=== PATIENT | female | born 2000 | race American Indian/Alaskan Native ===

== ENCOUNTER 2020-09-20 17:34 | Emergency (ER) | payer SELFPAY ==
[2020-09-20 17:55] VITALS: BP 115/61
--- NOTE | 2020-09-20 18:43 | Event Note ---
ED Screening Note Date of service: 09/20/20 Time: 18:43 ED Screening Note: 20-year-old -Guine[place] female presents to the emergency room stating that she just feels weak for 1 week. 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 Patient reports she is eating well, no fever no chills, vomited 1 time yesterday one episode of diarrhea yesterday. She took a laxative earlier today. She reports her menstrual period was 09/17/2019. She states that she has some left lower quadrant discomfort. Past medical history of nothing currently takes no medications. Has no known drug allergies. This initial assessment/diagnostic orders/clinical plan/treatment(s) is/are subject to change based on patients health status, clinical progression and re- assessment by fellow clinical providers in the ED. Further treatment and workup at subsequent clinical providers discretion. Patient/guardian urged not to elope from the ED as their condition may be serious if not clinically assessed and managed. Initial orders include:
[2020-09-20 19:00] LABS: Bacteria,Urine 4+ /HPF (Negative); Bilirubin,Urine NEG (Negative); Blood,Urine NEG (Negative); Color,Urine Yellow (Yellow); Hyaline Casts,Urine 3 /LPF; Mucus,Urine 3+ /HPF; Protein,Urine <15 mg/dL mg/dL (Negative)
[2020-09-20 19:02] LABS: HCG Qualitative,Urine Negative (Negative)
--- NOTE | 2020-09-20 19:14 | Emergency Department Report ---
ED Female HPI - General Chief complaint: Pain General Stated complaint: FEVER/BODY ACHE Time Seen by Provider: 09/20/20 18:02 Source: patient Mode of arrival: Ambulatory Limitations: No Limitations - History of Present Illness Initial comments: 20-year-old -Ira[place] female presents to the emergency room stating that she just feels weak for 1 week. 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 Patient reports she is eating well, no fever no chills, vomited 1 time yesterday one episode of diarrhea yesterday. She took a laxative earlier today. She reports her menstrual period was 09/17/2019. She states that she has some left lower quadrant discomfort. Past medical history of nothing currently takes no medications. Has no known drug allergies. Onset/Timin -: week(s) Radiation: LLQ Severity: mild Consistency: intermittent Improves with: none Worsens with: none Are you Now?: No Last Menstrual Period: 09/16/20 EDC: 06/23/21 - Related Data Previous Rx's Medication Instructions Recorded Last Taken Type Nitrofurantoin [place]/M-Cryst 100 mg PO Q12HR 10 Days #20 capsule 09/20/20 Unknown Rx [Macrobid CAP] Allergies Allergy/AdvReac Type Severity Reaction Status Date / Time No Known Allergies Allergy Unverified 09/20/20 17:54 ED Review of Systems ROS: Stated complaint: FEVER/BODY ACHE Other details as noted in HPI Comment: All other systems reviewed and negative ED Past Medical Hx - Past Medical History Previous Medical History?: No - Medications Home Medications: Home Medications Medication Instructions Recorded Confirmed Last Taken Type Nitrofurantoin [place]/M-Cryst 100 mg PO Q12HR 10 Days #20 capsule 09/20/20 Unknown Rx [Macrobid CAP] ED Physical Exam - General Limitations: No Limitations ED Course Vital Signs 09/20/20 09/20/20 17:51 17:55 Temperature 98.2 F Pulse Rate 61 Respiratory 20 Rate Blood Pressure 115/61 O2 Sat by Pulse 99 Oximetry ED Medical Decision Making - Medical Decision Making 20-year-old -I[place] female presents to the emergency room stating that she just feels weak for 1 week. 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 Patient reports she is eating well, no fever no chills, vomited 1 time yesterday one episode of diarrhea yesterday. She took a laxative earlier today. She rep orts her menstrual period was 09/17/2019. She states that she has some left lower quadrant discomfort. Past medical history of nothing currently takes no medications. Has no known drug allergies. Urinalysis is positive for urinary tract infection. Will place patient on Macrobid she can take [id number] ibuprofen or Tylenol and to follow-up with her primary care provider. Critical care attestation.: If time is entered above; I have spent that time in minutes in the direct care of this critically ill patient, excluding procedure time. ED Disposition Clinical Impression: UTI (urinary tract infection) Disposition: TO HOME OR SELFCARE Is pt being admited?: No Does the pt Need Aspirin: No Condition: Stable Instructions: Urinary Tract Infection, Adult, [id number] Additional Instructions: Urine shows you have a urinary tract infection. I would like for you to complete your antibiotics as prescribed. Tylenol or ibuprofen as needed for pain. Increase your fluids advance your diet as tolerated follow-up with your primary care provider. Prescriptions: Nitrofurantoin [place]/M-Cryst [Macrobid CAP] 100 mg PO Q12HR 10 Days #20 capsule Referrals: PRIMARY CARE [Primary Care Provider] - 3-5 Days [facility] [Provider Group] - 3-5 Days Forms: Work/School Release Form(ED)
== END 2020-09-20 19:15 | disposition home or self-care (01) ==
LOC: ED 17:34
DX: N39.0 Urinary tract infection, site not specified (principal); Z79.899 Other long term (current) drug therapy
CPT/HCPCS: 81001; 81025; 87086

== ENCOUNTER 2020-10-01 00:53 | Emergency (ER) | payer SELFPAY ==
[2020-10-01 01:47] LABS: Bacteria,Urine 4+ /HPF (Negative); Bilirubin,Urine NEG (Negative); Blood,Urine NEG (Negative); Color,Urine Straw (Yellow); Protein,Urine <15 mg/dL mg/dL (Negative); Urobilinogen,Urine < 2.0 mg/dL (<2.0)
[2020-10-01 01:48] LABS: HCG Qualitative,Urine Negative (Negative)
[2020-10-01] MEDS ORDERED: cephALEXin 500 MG CAP PO ONE (02:06)
[2020-10-01] MEDS ORDERED: metroNIDAZOLE 500 MG TAB PO ONE (02:06)
[2020-10-01] MEDS ORDERED: ONDANSETRON 4 MG ODT TAB PO ONE (02:06)
--- NOTE | 2020-10-01 02:06 | Emergency Department Report ---
ED Female HPI - General Stated complaint: STD CHECK - History of Present Illness Initial comments: Patient is a nulliparous 20-year-old -Finnish female with no past medical history presents to the ED with complaint of acute onset persistent urinary frequency and urgency, vaginal discharge for the last 1 week, worse in the last 2 days. Patient states that she was recently diagnosed with acute urinary tract infection but she has not obtained the medication that was prescribed for her UTI. Patient also states that her sexual partner, a female, was diagnosed with trichomonas recently and was treated for the same but she would also like to be tested for the same and treated. Patient denies vaginal bleeding, dyspareunia, sore throat, abdominal pain, nausea, vomiting, fever, chills, cough, diarrhea, low back pain or chest pain or shortness of breath or vaginal bleeding. MD Complaint: vaginal discharge, dysuria -: Sudden, days(s) (2) Location: other (vaginal) Radiation: non-radiating Severity: moderate Severity scale (0 -10): 6 Quality: dull, burning Consistency: constant Improves with: none Worsens with: none Are you Now?: No Last Menstrual Period: 08/17/20 EDC: 05/24/21 Associated Symptoms: denies other symptoms, vaginal discharge, dysuria. denies: abdominal pain, nausea/vomiting, fever/chills, headaches, loss of appetite, rash, seizure, shortness of breath, syncope, weakness, other - Related Data Sexually active: No : 0 Para: 0 A: 0 Previous Rx's Medication Instructions Recorded Last Taken Type Fluconazole (Nf) [Diflucan TAB] 150 mg PO ONCE #1 tablet 10/01/20 Unknown Rx Ondansetron [Zofran Odt] 4 mg PO Q6HR PRN #15 tab.rapdis 10/01/20 Unknown Rx Sulfamethoxazole/Trimethoprim 1 each PO Q12H #20 tablet 10/01/20 Unknown Rx [Bactrim DS TAB] metroNIDAZOLE [Flagyl] 500 mg PO Q12HR #14 tab 10/01/20 Unknown Rx Allergies Allergy/AdvReac Type Severity Reaction Status Date / Time No Known Allergies Allergy Unverified 09/20/20 17:54 ED Review of Systems ROS: Stated complaint: STD CHECK Other details as noted in HPI Constitutional: denies: chills, fever Eyes: denies: eye pain, eye discharge, vision change ENT: denies: ear pain, throat pain Respiratory: denies: cough, shortness of breath, wheezing Cardiovascular: denies: chest pain, palpitations Endocrine: no symptoms reported Gastrointestinal: denies: abdominal pain, nausea, diarrhea Genitourinary: urgency, dysuria, frequency, discharge Musculoskeletal: denies: back pain, joint swelling, arthralgia Skin: denies: rash, lesions Neurological: denies: headache, weakness, paresthesias Psychiatric: denies: anxiety, depression Hematological/Lymphatic: denies: easy bleeding, easy bruising ED Past Medical Hx - Medications Home Medications: Home Medications Medication Instructions Recorded Confirmed Last Taken Type Fluconazole (Nf) [Diflucan TAB] 150 mg PO ONCE #1 tablet 10/01/20 Unknown Rx Ondansetron [Zofran Odt] 4 mg PO Q6HR PRN #15 tab.rapdis 10/01/20 Unknown Rx Sulfamethoxazole/Trimethoprim 1 each PO Q12H #20 tablet 10/01/20 Unknown Rx [Bactrim DS TAB] metroNIDAZOLE [Flagyl] 500 mg PO Q12HR #14 tab 10/01/20 Unknown Rx ED Physical Exam - General General appearance: alert, in no apparent distress - Head Head exam: Present: atraumatic, normocephalic, normal inspection - Eye Eye exam: Present: normal appearance, PERRL, EOMI Pupils: Present: normal accommodation - ENT ENT exam: Present: normal exam, normal orophraynx, mucous membranes moist, TM's normal bilaterally, normal external ear exam - Neck Neck exam: Present: normal inspection, full ROM - Respiratory Respiratory exam: Present: normal lung sounds bilaterally. Absent: respiratory distress, wheezes, rales, rhonchi, chest wall tenderness, accessory muscle use, decreased breath sounds, prolonged expiratory - Cardiovascular Cardiovascular Exam: Present: regular rate, normal rhythm, normal heart sounds. Absent: systolic murmur, diastolic murmur, rubs, gallop - GI/Abdominal GI/Abdominal exam: Present: soft, normal bowel sounds. Absent: distended, tenderness, guarding, rebound, hyperactive bowel sounds, hypoactive bowel so unds, organomegaly - Bi-manual exam: Present: other (Pelvic exam deferred) - Extremities Exam Extremities exam: Present: normal inspection, full ROM, normal capillary refill - Back Exam Back exam: Present: normal inspection, full ROM. Absent: tenderness, CVA tenderness (R), CVA tenderness (L), muscle spasm, paraspinal tenderness, vertebral tenderness - Neurological Exam Neurological exam: Present: alert, oriented X3, CN II-XII intact, normal gait, reflexes normal - Psychiatric Psychiatric exam: Present: normal affect, normal mood - Skin Skin exam: Present: warm, dry, intact, normal color. Absent: rash ED Course Vital Signs 10/01/20 02:15 Temperature 98.5 F Pulse Rate 85 Respiratory 20 Rate Blood Pressure 114/68 O2 Sat by Pulse 99 Oximetry ED Medical Decision Making - Medical Decision Making This is a nulliparous 20-year-old -Finn[place] female with no past medical history presents to the ED with complaint of acute onset persistent urinary frequency and urgency, vaginal discharge for the last 1 week, worse in the last 2 days. Patient states that she was recently diagnosed with acute urinary tract infection but she has not obtained the medication that was prescribed for her UTI. Patient also states that her sexual partner, a female, was diagnosed with trichomonas recently and was treated for the same but she would also like to be tested for the same and treated. In the ED, patient is alert and oriented x3 and is not in any distress. Urinalysis shows acute urinary tract infection. Wet prep test was positive for trichomonas and Gardnerella vaginalis consistent with bacterial vaginosis. Patient was treated in the ED for trichomonas with Flagyl 2 g p.o. x1. Patient was thereafter discharged home on medications including antibiotics for UTI, antibiotics for bacterial vaginosis and was advised to follow-up with her primary care physician in 7 to 10 days for reevaluation or return to the ED immediately if symptoms get worse. - Differential Diagnosis STD; Bacterial vaginosis; UTI; Trichomonas; Critical care attestation.: If time is entered above; I have spent that time in minutes in the direct care of this critically ill patient, excluding procedure time. ED Disposition Clinical Impression: Acute urinary tract infection, Bacterial vaginosis, Trichomonas vaginalis (TV) infection Disposition: TO HOME OR SELFCARE Is pt being admited?: No Does the pt Need Aspirin: No Condition: Stable Instructions: Urinary Tract Infection, Adult, [id number], Bacterial Vaginosis, [id number], Trichomoniasis, Bacterial Vaginosis (ED) Additional Instructions: Take medication with food, drink plenty of fluids and follow-up with your primary care physician in 7 to 10 days for reevaluation. Return to the ED immediately if symptoms get worse. Prescriptions: Sulfamethoxazole/Trimethoprim [Bactrim DS TAB] 1 each PO Q12H #20 tablet Fluconazole (Nf) [Diflucan TAB] 150 mg PO ONCE #1 tablet metroNIDAZOLE [Flagyl] 500 mg PO Q12HR #14 tab Ondansetron [Zofran Odt] 4 mg PO Q6HR PRN #15 tab.rapdis PRN Reason: Nausea Referrals: [facility] [Provider Group] - 7-10 days Forms: STI Treatment and Prevention Time of Disposition: 02:05 Print Language: MOZAMBICAN
[2020-10-01 02:20] VITALS: BP 114/68
== END 2020-10-01 02:31 | disposition home or self-care (01) ==
LOC: ED 00:53
DX: N76.0 Acute vaginitis (principal); B96.89 Other specified bacterial agents as the cause of diseases classified elsewhere; Z79.899 Other long term (current) drug therapy
CPT/HCPCS: 81001; 81025; 87210; 99283; Q0162